=== PATIENT | male | born 1970 | race Caucasian/White ===

== ENCOUNTER 2022-03-16 10:32 | Inpatient (IN) ==
[2022-03-16] MEDS ORDERED: *HR* Dextrose 50 % in Water (Syg) 50 ML SYRINGE IVP PRN (15:54)
[2022-03-16] MEDS ORDERED: Dextrose Gel 15 GM/37.5 ML TUBE PO PRN ×2 (15:54)
[2022-03-16] MEDS ORDERED: D5% in Water 1,000 ML IVC PRN (15:54)
[2022-03-16] MEDS ORDERED: VANCOMYCIN IV SCH (16:00)
[2022-03-16] MEDS ORDERED: [UNRECOGNIZED DRUG - OTHER] IV SCH (16:00)
[2022-03-16] MEDS ORDERED: SOD CHLORIDE IV SCH (16:00)
[2022-03-16] MEDS: Insulin LISPRO 300 UNITS/3 ML VIAL SUBQ SCH ×2 (16:53→20:51)
[2022-03-16] MEDS: Cefepime HCl 2,000 MG in 0.9 % Sodium Chloride 10 ML IVP SCH (18:19)
[2022-03-16] MEDS: *HR* Buprenorphine HCl 8 MG TAB.SUBL SL SCH (20:49)
[2022-03-16] MEDS ORDERED: NON-FORMULARY MEDICATION 1 EACH EACH (Cefepime Hcl/Dextrose, Iso-Osm [Cefepime 2 Gm Inject IV SCH (21:00)
[2022-03-16] MEDS: *HR* Heparin 5,000 UNIT/ML VIAL SQ SCH (21:02)
[2022-03-17] MEDS: Cefepime HCl 2,000 MG in 0.9 % Sodium Chloride 10 ML IVP SCH ×2 (05:57→18:34)
[2022-03-17] MEDS: *HR* Heparin 5,000 UNIT/ML VIAL SQ SCH ×3 (05:57→20:03)
[2022-03-17 07:33] LABS: Basophils % 0.4 %; Eosinophils # 0.2 K/mcL (0.0-0.6); Eosinophils % 1.7 %; Hematocrit 33.8 % (37.5-50.1); Hemoglobin 10.3 g/dL (12.9-16.9); Immature Granulocytes % 0.3 % (0-4); Lymphocytes # 2.6 K/mcL (0.6-4.6); Lymphocytes % 27.1 %; Mean Corpuscular HGB Conc 30.5 g/dL (31.6-35.5); Mean Corpuscular Hemoglobin 25.5 pg (28.0-33.3); Mean Corpuscular Volume 83.7 fL (83.0-100.0); Mean Platelet Volume 10.9 fL (9.4-12.4); Monocytes # 0.9 K/mcL (0.0-1.3); Neutrophils # 5.9 K/mcL (1.6-8.9); Platelet Count 284 K/mcL (140-400); Red Blood Count 4.04 M/mcL (4.19-5.50); Red Cell Distribution Width 15.1 % (11.5-14.5); Segmented Neutrophils % 61.5 %; White Blood Count 9.6 K/mcL (4.3-11.1)
[2022-03-17 07:45] LABS: BUN/Creatinine Ratio 27 (6-26); Blood Urea Nitrogen 27 mg/dL (6-20); Calcium 7.8 mg/dL (8.6-10.3); Carbon Dioxide 29 mEq/L (23-29); Chloride 104 mEq/L (98-107); Glucose 240 mg/dL (70-105); Osmolality,Calculated 299 (280-300); Potassium 4.2 mEq/L (3.5-5.1); Sodium 138 mEq/L (136-145)
[2022-03-17] MEDS: Aspirin 81 MG TAB.CHEW PO SCH (08:36)
[2022-03-17] MEDS: lisinopriL 5 MG TABLET PO SCH (08:36)
[2022-03-17] MEDS: *HR* Buprenorphine HCl 8 MG TAB.SUBL SL SCH ×3 (08:36→19:52)
[2022-03-17] MEDS: Insulin LISPRO 300 UNITS/3 ML VIAL SUBQ SCH ×4 (08:37→19:54)
[2022-03-18] MEDS: Cefepime HCl 2,000 MG in 0.9 % Sodium Chloride 10 ML IVP SCH ×3 (05:02→17:36)
[2022-03-18] MEDS: *HR* Heparin 5,000 UNIT/ML VIAL SQ SCH ×3 (05:03→20:39)
[2022-03-18] MEDS: lisinopriL 5 MG TABLET PO SCH (08:58)
[2022-03-18] MEDS: *HR* Buprenorphine HCl 8 MG TAB.SUBL SL SCH ×3 (08:58→20:40)
[2022-03-18] MEDS: Aspirin 81 MG TAB.CHEW PO SCH (08:59)
[2022-03-18] MEDS: Insulin LISPRO 300 UNITS/3 ML VIAL SUBQ SCH ×4 (08:59→20:40)
[2022-03-18] MEDS ORDERED: Artificial Tears SOLN 15 ML BOTTLE BOTH EYES PRN (18:06)
[2022-03-19] MEDS: *HR* Heparin 5,000 UNIT/ML VIAL SQ SCH ×3 (06:18→22:10)
[2022-03-19] MEDS: Cefepime HCl 2,000 MG in 0.9 % Sodium Chloride 10 ML IVP SCH ×2 (06:18→17:15)
[2022-03-19] MEDS: lisinopriL 5 MG TABLET PO SCH (08:05)
[2022-03-19] MEDS: *HR* Buprenorphine HCl 8 MG TAB.SUBL SL SCH ×3 (08:05→22:10)
[2022-03-19] MEDS: Aspirin 81 MG TAB.CHEW PO SCH (08:05)
[2022-03-19] MEDS: Insulin LISPRO 300 UNITS/3 ML VIAL SUBQ SCH ×4 (08:06→22:23)
[2022-03-19] MEDS: Insulin DETEMIR 100 UNIT/ML X5UNITS SUBQ SCH (22:22)
[2022-03-20] MEDS: *HR* Heparin 5,000 UNIT/ML VIAL SQ SCH ×3 (05:46→22:25)
[2022-03-20] MEDS: Cefepime HCl 2,000 MG in 0.9 % Sodium Chloride 10 ML IVP SCH ×2 (05:46→17:04)
[2022-03-20] MEDS: lisinopriL 5 MG TABLET PO SCH (09:40)
[2022-03-20] MEDS: Aspirin 81 MG TAB.CHEW PO SCH (09:40)
[2022-03-20] MEDS: *HR* Buprenorphine HCl 8 MG TAB.SUBL SL SCH ×3 (09:41→22:25)
[2022-03-20] MEDS: Insulin DETEMIR 100 UNIT/ML X5UNITS SUBQ SCH ×2 (09:41→22:26)
[2022-03-20] MEDS: Insulin LISPRO 300 UNITS/3 ML VIAL SUBQ SCH ×4 (09:42→22:27)
[2022-03-20] MEDS: Melatonin 3 MG TABLET PO PRN (22:28)
[2022-03-21] MEDS: *HR* Heparin 5,000 UNIT/ML VIAL SQ SCH ×3 (05:58→20:30)
[2022-03-21] MEDS: lisinopriL 5 MG TABLET PO SCH (09:03)
[2022-03-21] MEDS: Aspirin 81 MG TAB.CHEW PO SCH (09:03)
[2022-03-21] MEDS: *HR* Buprenorphine HCl 8 MG TAB.SUBL SL SCH ×3 (09:03→20:28)
[2022-03-21] MEDS: Insulin DETEMIR 100 UNIT/ML X5UNITS SUBQ SCH ×2 (09:04→20:32)
[2022-03-21] MEDS: Cefepime HCl 2,000 MG in 0.9 % Sodium Chloride 10 ML IVP SCH ×2 (09:05→16:55)
[2022-03-21] MEDS: Insulin LISPRO 300 UNITS/3 ML VIAL SUBQ SCH ×4 (09:06→20:33)
[2022-03-21 09:39] LABS: Basophils % 0.3 %; Eosinophils # 0.2 K/mcL (0.0-0.6); Eosinophils % 1.8 %; Hematocrit 35.6 % (37.5-50.1); Hemoglobin 10.9 g/dL (12.9-16.9); Immature Granulocytes % 0.4 % (0-4); Lymphocytes # 2.6 K/mcL (0.6-4.6); Lymphocytes % 26.6 %; Mean Corpuscular HGB Conc 30.6 g/dL (31.6-35.5); Mean Corpuscular Hemoglobin 25.6 pg (28.0-33.3); Mean Corpuscular Volume 83.6 fL (83.0-100.0); Mean Platelet Volume 11.5 fL (9.4-12.4); Monocytes # 0.9 K/mcL (0.0-1.3); Platelet Count 301 K/mcL (140-400); Red Blood Count 4.26 M/mcL (4.19-5.50); Red Cell Distribution Width 15.8 % (11.5-14.5); Segmented Neutrophils % 61.9 %; White Blood Count 9.6 K/mcL (4.3-11.1)
[2022-03-21 09:47] LABS: Calcium 7.9 mg/dL (8.6-10.3); Potassium 4.3 mEq/L (3.5-5.1)
[2022-03-22] MEDS: *HR* Heparin 5,000 UNIT/ML VIAL SQ SCH ×3 (05:41→22:40)
[2022-03-22] MEDS: Cefepime HCl 2,000 MG in 0.9 % Sodium Chloride 10 ML IVP SCH ×2 (05:42→18:37)
[2022-03-22] MEDS: Insulin LISPRO 300 UNITS/3 ML VIAL SUBQ SCH ×4 (08:51→20:55)
[2022-03-22] MEDS: Insulin DETEMIR 100 UNIT/ML X5UNITS SUBQ SCH ×2 (08:52→20:55)
[2022-03-22] MEDS: *HR* Buprenorphine HCl 8 MG TAB.SUBL SL SCH ×3 (08:54→20:55)
[2022-03-22] MEDS: lisinopriL 5 MG TABLET PO SCH (08:54)
[2022-03-22] MEDS: Aspirin 81 MG TAB.CHEW PO SCH (08:54)
[2022-03-22] MEDS: Melatonin 3 MG TABLET PO PRN (21:02)
[2022-03-23] MEDS: Cefepime HCl 2,000 MG in 0.9 % Sodium Chloride 10 ML IVP SCH ×2 (06:17→21:15)
[2022-03-23] MEDS: *HR* Heparin 5,000 UNIT/ML VIAL SQ SCH ×3 (06:18→23:28)
[2022-03-23] MEDS: Insulin LISPRO 300 UNITS/3 ML VIAL SUBQ SCH ×4 (07:43→22:31)
[2022-03-23] MEDS: lisinopriL 5 MG TABLET PO SCH (10:59)
[2022-03-23] MEDS: *HR* Buprenorphine HCl 8 MG TAB.SUBL SL SCH ×3 (10:59→21:15)
[2022-03-23] MEDS: Aspirin 81 MG TAB.CHEW PO SCH (10:59)
[2022-03-23] MEDS: Insulin DETEMIR 100 UNIT/ML X5UNITS SUBQ SCH ×2 (11:02→22:31)
[2022-03-23 12:40] LABS: Basophils % 0.4 %; Eosinophils # 0.1 K/mcL (0.0-0.6); Eosinophils % 1.4 %; Hematocrit 35.9 % (37.5-50.1); Hemoglobin 11.3 g/dL (12.9-16.9); Immature Granulocytes % 0.4 % (0-4); Lymphocytes # 2.2 K/mcL (0.6-4.6); Lymphocytes % 22.4 %; Mean Corpuscular HGB Conc 31.5 g/dL (31.6-35.5); Mean Corpuscular Hemoglobin 26.2 pg (28.0-33.3); Mean Corpuscular Volume 83.1 fL (83.0-100.0); Mean Platelet Volume 12.4 fL (9.4-12.4); Monocytes # 0.9 K/mcL (0.0-1.3); Monocytes % 9.4 %; Neutrophils # 6.5 K/mcL (1.6-8.9); Platelet Count 293 K/mcL (140-400); Red Blood Count 4.32 M/mcL (4.19-5.50); White Blood Count 9.9 K/mcL (4.3-11.1)
[2022-03-23 12:59] LABS: Alanine Aminotransferase 7 Units/L (7-52); Albumin 2.6 g/dL (3.5-5.7); Albumin/Globulin Ratio 0.6 (1.1-2.2); Alkaline Phosphatase 55 Units/L (34-104); Aspartate Amino Transferase 11 Units/L (13-39); BUN/Creatinine Ratio 24 (6-26); Bilirubin,Total 0.2 mg/dL (0.3-1.0); Blood Urea Nitrogen 23 mg/dL (6-20); Calcium 8.1 mg/dL (8.6-10.3); Carbon Dioxide 33 mEq/L (23-29); Chloride 97 mEq/L (98-107); Globulin 4.1 g/dL (2.4-3.5); Glucose 338 mg/dL (70-105); Osmolality,Calculated 299 (280-300); Potassium 4.1 mEq/L (3.5-5.1); Sodium 136 mEq/L (136-145); Total Protein 6.7 g/dL (6.4-8.9)
[2022-03-24 03:51] LABS: Hepatitis B Surface Antibody < 3.10 mIU/mL
[2022-03-24 04:01] LABS: Hepatitis B Surface Antigen Nonreactive (Nonreactive)
[2022-03-24 04:33] LABS: HIV-1&2 Antibody & p24 Ag Nonreactive (Nonreactive)
[2022-03-24] MEDS: *HR* Heparin 5,000 UNIT/ML VIAL SQ SCH ×3 (06:42→21:45)
[2022-03-24] MEDS: *HR* Buprenorphine HCl 8 MG TAB.SUBL SL SCH ×3 (08:18→21:44)
[2022-03-24] MEDS: lisinopriL 5 MG TABLET PO SCH (08:18)
[2022-03-24] MEDS: Insulin LISPRO 300 UNITS/3 ML VIAL SUBQ SCH ×4 (08:19→21:49)
[2022-03-24] MEDS: Aspirin 81 MG TAB.CHEW PO SCH (08:19)
[2022-03-24] MEDS: Cefepime HCl 2,000 MG in 0.9 % Sodium Chloride 10 ML IVP SCH ×2 (08:55→17:14)
[2022-03-24] MEDS: Insulin DETEMIR 100 UNIT/ML X5UNITS SUBQ SCH ×2 (09:13→21:49)
[2022-03-25] MEDS: *HR* Heparin 5,000 UNIT/ML VIAL SQ SCH ×3 (06:03→21:18)
[2022-03-25] MEDS: Cefepime HCl 2,000 MG in 0.9 % Sodium Chloride 10 ML IVP SCH ×2 (06:04→17:35)
[2022-03-25] MEDS: *HR* Buprenorphine HCl 8 MG TAB.SUBL SL SCH ×3 (08:15→21:18)
[2022-03-25] MEDS: Aspirin 81 MG TAB.CHEW PO SCH (08:15)
[2022-03-25] MEDS: lisinopriL 5 MG TABLET PO SCH (08:16)
[2022-03-25] MEDS: Insulin LISPRO 300 UNITS/3 ML VIAL SUBQ SCH ×4 (08:16→21:22)
[2022-03-25] MEDS: Insulin DETEMIR 100 UNIT/ML X5UNITS SUBQ SCH ×2 (09:58→21:23)
[2022-03-25 11:25] LABS: Quantiferon Mitogen minus NIL 4.57 IU/mL; Quantiferon TB2 minus NIL 0.02 IU/mL (< 0.35)
[2022-03-26] MEDS: *HR* Heparin 5,000 UNIT/ML VIAL SQ SCH ×3 (06:30→22:13)
[2022-03-26] MEDS: Cefepime HCl 2,000 MG in 0.9 % Sodium Chloride 10 ML IVP SCH ×2 (06:30→18:34)
[2022-03-26] MEDS: *HR* Buprenorphine HCl 8 MG TAB.SUBL SL SCH ×3 (08:18→20:40)
[2022-03-26] MEDS: Aspirin 81 MG TAB.CHEW PO SCH (08:18)
[2022-03-26] MEDS: lisinopriL 5 MG TABLET PO SCH (08:18)
[2022-03-26] MEDS: Insulin LISPRO 300 UNITS/3 ML VIAL SUBQ SCH ×4 (08:19→20:41)
[2022-03-26] MEDS: Insulin DETEMIR 100 UNIT/ML X5UNITS SUBQ SCH ×2 (10:14→20:41)
[2022-03-26] MEDS: Melatonin 3 MG TABLET PO PRN (22:51)
[2022-03-27] MEDS: *HR* Heparin 5,000 UNIT/ML VIAL SQ SCH ×3 (06:26→20:39)
[2022-03-27] MEDS: Cefepime HCl 2,000 MG in 0.9 % Sodium Chloride 10 ML IVP SCH ×2 (06:27→20:39)
[2022-03-27] MEDS: Insulin LISPRO 300 UNITS/3 ML VIAL SUBQ SCH ×4 (08:54→20:40)
[2022-03-27] MEDS: Insulin DETEMIR 100 UNIT/ML X5UNITS SUBQ SCH ×2 (08:55→20:39)
[2022-03-27] MEDS: lisinopriL 5 MG TABLET PO SCH (08:56)
[2022-03-27] MEDS: *HR* Buprenorphine HCl 8 MG TAB.SUBL SL SCH ×3 (08:56→20:40)
[2022-03-27] MEDS: Aspirin 81 MG TAB.CHEW PO SCH (08:56)
[2022-03-27] MEDS: Melatonin 3 MG TABLET PO PRN (20:49)
[2022-03-28] MEDS: *HR* Heparin 5,000 UNIT/ML VIAL SQ SCH ×3 (05:34→22:04)
[2022-03-28] MEDS: Cefepime HCl 2,000 MG in 0.9 % Sodium Chloride 10 ML IVP SCH ×2 (05:34→20:45)
[2022-03-28] MEDS: *HR* Buprenorphine HCl 8 MG TAB.SUBL SL SCH ×3 (08:12→20:42)
[2022-03-28] MEDS: Insulin DETEMIR 100 UNIT/ML X5UNITS SUBQ SCH (08:12)
[2022-03-28] MEDS: Aspirin 81 MG TAB.CHEW PO SCH (08:12)
[2022-03-28] MEDS: lisinopriL 5 MG TABLET PO SCH (08:12)
[2022-03-28] MEDS: Insulin LISPRO 300 UNITS/3 ML VIAL SUBQ SCH ×4 (08:16→20:43)
[2022-03-28] MEDS: Melatonin 3 MG TABLET PO PRN (20:42)
[2022-03-28] MEDS ORDERED: Insulin DETEMIR 100 UNIT/ML per UNIT SUBQ ONE (21:00)
[2022-03-29] MEDS: *HR* Heparin 5,000 UNIT/ML VIAL SQ SCH ×3 (06:35→23:13)
[2022-03-29] MEDS: Cefepime HCl 2,000 MG in 0.9 % Sodium Chloride 10 ML IVP SCH ×2 (06:35→17:41)
[2022-03-29 07:33] LABS: Basophils % 0.4 %; Eosinophils # 0.3 K/mcL (0.0-0.6); Eosinophils % 2.3 %; Hematocrit 42.2 % (37.5-50.1); Hemoglobin 12.7 g/dL (12.9-16.9); Immature Granulocytes % 0.7 % (0-4); Lymphocytes # 2.5 K/mcL (0.6-4.6); Mean Corpuscular HGB Conc 30.1 g/dL (31.6-35.5); Mean Corpuscular Hemoglobin 26.3 pg (28.0-33.3); Mean Corpuscular Volume 87.4 fL (83.0-100.0); Mean Platelet Volume 12.3 fL (9.4-12.4); Monocytes # 1.1 K/mcL (0.0-1.3); Monocytes % 9.8 %; Neutrophils # 6.8 K/mcL (1.6-8.9); Platelet Count 265 K/mcL (140-400); Red Blood Count 4.83 M/mcL (4.19-5.50); Red Cell Distribution Width 17.7 % (11.5-14.5); Segmented Neutrophils % 63.8 %; White Blood Count 10.7 K/mcL (4.3-11.1)
[2022-03-29 07:41] LABS: BUN/Creatinine Ratio 29 (6-26); Blood Urea Nitrogen 26 mg/dL (6-20); Calcium 8.4 mg/dL (8.6-10.3); Carbon Dioxide 33 mEq/L (23-29); Chloride 101 mEq/L (98-107); Glucose 211 mg/dL (70-105); Magnesium 1.7 mg/dL (1.6-2.6); Osmolality,Calculated 301 (280-300); Potassium 4.3 mEq/L (3.5-5.1); Sodium 140 mEq/L (136-145)
[2022-03-29] MEDS ORDERED: Ipratropium/Albuterol Neb 3 ML IH PRN (08:45)
[2022-03-29] MEDS ORDERED: Furosemide 40 MG/4 ML VIAL IVP ONE (08:45)
[2022-03-29] MEDS: *HR* Buprenorphine HCl 8 MG TAB.SUBL SL SCH ×3 (09:23→23:13)
[2022-03-29] MEDS: Aspirin 81 MG TAB.CHEW PO SCH (09:23)
[2022-03-29] MEDS: lisinopriL 5 MG TABLET PO SCH (09:23)
[2022-03-29] MEDS ORDERED: Iopamidol - 370 500 ML MLS IVP ONE (09:24)
[2022-03-29] MEDS: Insulin LISPRO 300 UNITS/3 ML VIAL SUBQ SCH ×4 (09:24→23:14)
[2022-03-29] MEDS: Insulin DETEMIR 100 UNIT/ML X5UNITS SUBQ SCH ×2 (09:43→23:13)
[2022-03-29] MEDS ORDERED: lisinopriL 20 MG TABLET PO SCH (09:45)
[2022-03-29] MEDS ORDERED: lisinopriL 5 MG TABLET PO ONE (10:27)
[2022-03-29 10:58] LABS: Adenovirus Not Detected (Not Detect); Coronavirus 229E Not Detected (Not Detect); Coronavirus HKU1 Not Detected (Not Detect); Coronavirus NL63 Not Detected (Not Detect); Coronavirus OC43 Not Detected (Not Detect)
[2022-03-29 11:05] LABS: Bordetella Pertussis Not Detected (Not Detect); Chlamydophila pneumoniae Not Detected (Not Detect); Human Metapneumovirus Not Detected (Not Detect); Human Rhinovirus/Enterovirus Not Detected (Not Detect); Influenza A Subtype 2009 H1 Not Detected (Not Detect); Influenza B Not Detected (Not Detect); Mycoplasma pneumoniae Not Detected (Not Detect); Parainfluenza Virus 1 Not Detected (Not Detect); Parainfluenza Virus 2 Not Detected (Not Detect); Parainfluenza Virus 3 Not Detected (Not Detect); Parainfluenza Virus 4 Not Detected (Not Detect); Respiratory Syncytial Virus Not Detected (Not Detect); SARS-CoV-2 DETECTED (Not Detect)
[2022-03-29] MEDS ORDERED: Ondansetron ODT 4 MG TAB.RAPDIS SL PRN (11:09)
[2022-03-29] MEDS ORDERED: Acetylcysteine 10% 2 ML INHSOL IH SCH (11:15)
[2022-03-29] MEDS ORDERED: Ipratropium/Albuterol Neb 3 ML IH SCH (11:15)
[2022-03-29] MEDS: Nicotine 21 MG PATCH.TD24 TD SCH (12:28)
[2022-03-29] MEDS: Benzonatate 100 MG CAPSULE PO PRN (23:12)
[2022-03-29] MEDS: Melatonin 3 MG TABLET PO PRN (23:12)
[2022-03-29] MEDS: Acetaminophen 325 MG TABLET PO PRN (23:12)
[2022-03-30] MEDS: *HR* Heparin 5,000 UNIT/ML VIAL SQ SCH ×3 (06:43→21:28)
[2022-03-30] MEDS ORDERED: GuaiFENesin/Dextromethorphan TABLET PO PRN (08:01)
[2022-03-30] MEDS: Cefepime HCl 2,000 MG in 0.9 % Sodium Chloride 10 ML IVP SCH ×2 (08:14→18:47)
[2022-03-30] MEDS: Insulin LISPRO 300 UNITS/3 ML VIAL SUBQ SCH ×4 (08:25→21:33)
[2022-03-30] MEDS: Aspirin 81 MG TAB.CHEW PO SCH (09:58)
[2022-03-30] MEDS: *HR* Buprenorphine HCl 8 MG TAB.SUBL SL SCH ×3 (09:58→21:26)
[2022-03-30] MEDS: Furosemide 20 MG TABLET PO SCH (09:58)
[2022-03-30] MEDS: lisinopriL 20 MG TABLET PO SCH (09:59)
[2022-03-30] MEDS: Nicotine 21 MG PATCH.TD24 TD SCH (10:00)
[2022-03-30] MEDS: Insulin DETEMIR 100 UNIT/ML X5UNITS SUBQ SCH ×2 (10:02→21:28)
[2022-03-30] MEDS: Melatonin 3 MG TABLET PO PRN (21:26)
[2022-03-30] MEDS: Acetaminophen 325 MG TABLET PO PRN (21:26)
[2022-03-31] MEDS: *HR* Heparin 5,000 UNIT/ML VIAL SQ SCH ×3 (05:57→21:28)
[2022-03-31 06:30] LABS: Basophils # 0.1 K/mcL (0.0-0.2); Basophils % 0.5 %; Eosinophils # 0.1 K/mcL (0.0-0.6); Eosinophils % 0.5 %; Hematocrit 36.1 % (37.5-50.1); Hemoglobin 11.1 g/dL (12.9-16.9); Immature Granulocytes % 0.3 % (0-4); Lymphocytes # 3.3 K/mcL (0.6-4.6); Mean Corpuscular HGB Conc 30.7 g/dL (31.6-35.5); Mean Corpuscular Hemoglobin 26.3 pg (28.0-33.3); Mean Corpuscular Volume 85.5 fL (83.0-100.0); Mean Platelet Volume 12.4 fL (9.4-12.4); Monocytes # 1.2 K/mcL (0.0-1.3); Monocytes % 10.6 %; Neutrophils # 6.4 K/mcL (1.6-8.9); Platelet Count 226 K/mcL (140-400); Red Blood Count 4.22 M/mcL (4.19-5.50); Red Cell Distribution Width 17.6 % (11.5-14.5); Segmented Neutrophils % 58.1 %; White Blood Count 10.9 K/mcL (4.3-11.1)
[2022-03-31 06:44] LABS: Calcium 7.8 mg/dL (8.6-10.3); Potassium 4.5 mEq/L (3.5-5.1)
[2022-03-31] MEDS: Cefepime HCl 2,000 MG in 0.9 % Sodium Chloride 10 ML IVP SCH ×2 (07:15→18:37)
[2022-03-31] MEDS: Insulin LISPRO 300 UNITS/3 ML VIAL SUBQ SCH ×4 (08:19→21:30)
[2022-03-31] MEDS: *HR* Buprenorphine HCl 8 MG TAB.SUBL SL SCH ×3 (09:35→21:28)
[2022-03-31] MEDS: Furosemide 20 MG TABLET PO SCH (09:35)
[2022-03-31] MEDS: Aspirin 81 MG TAB.CHEW PO SCH (09:36)
[2022-03-31] MEDS: lisinopriL 20 MG TABLET PO SCH (09:36)
[2022-03-31] MEDS: Insulin DETEMIR 100 UNIT/ML X5UNITS SUBQ SCH ×2 (09:37→21:30)
[2022-03-31] MEDS: Nicotine 21 MG PATCH.TD24 TD SCH (10:30)
[2022-03-31] MEDS: Melatonin 3 MG TABLET PO PRN (21:28)
[2022-03-31] MEDS: Acetaminophen 325 MG TABLET PO PRN (21:41)
[2022-04-01] MEDS: Insulin LISPRO 300 UNITS/3 ML VIAL SUBQ SCH ×7 (00:28→21:32)
[2022-04-01] MEDS: *HR* Heparin 5,000 UNIT/ML VIAL SQ SCH ×3 (05:25→21:28)
[2022-04-01] MEDS: Cefepime HCl 2,000 MG in 0.9 % Sodium Chloride 10 ML IVP SCH ×2 (05:39→18:03)
[2022-04-01] MEDS: lisinopriL 20 MG TABLET PO SCH (09:28)
[2022-04-01] MEDS: Aspirin 81 MG TAB.CHEW PO SCH (09:29)
[2022-04-01] MEDS: *HR* Buprenorphine HCl 8 MG TAB.SUBL SL SCH ×3 (09:29→21:27)
[2022-04-01] MEDS: dexAMETHasone 4 MG TABLET PO SCH (09:29)
[2022-04-01] MEDS: Nicotine 21 MG PATCH.TD24 TD SCH (09:31)
[2022-04-01] MEDS: Insulin DETEMIR 100 UNIT/ML X5UNITS SUBQ SCH ×2 (09:32→21:31)
[2022-04-01] MEDS: Melatonin 3 MG TABLET PO PRN (21:24)
[2022-04-02] MEDS: Insulin LISPRO 300 UNITS/3 ML VIAL SUBQ SCH ×7 (01:03→20:36)
[2022-04-02] MEDS: *HR* Heparin 5,000 UNIT/ML VIAL SQ SCH ×3 (05:39→20:23)
[2022-04-02] MEDS: Cefepime HCl 2,000 MG in 0.9 % Sodium Chloride 10 ML IVP SCH ×2 (05:40→17:47)
[2022-04-02] MEDS: dexAMETHasone 4 MG TABLET PO SCH (08:24)
[2022-04-02] MEDS: Aspirin 81 MG TAB.CHEW PO SCH (08:24)
[2022-04-02] MEDS: *HR* Buprenorphine HCl 8 MG TAB.SUBL SL SCH ×3 (08:24→20:20)
[2022-04-02] MEDS: lisinopriL 20 MG TABLET PO SCH (08:24)
[2022-04-02] MEDS: Nicotine 21 MG PATCH.TD24 TD SCH (08:25)
[2022-04-02] MEDS: Insulin DETEMIR 100 UNIT/ML X5UNITS SUBQ SCH ×2 (09:45→20:34)
[2022-04-02] MEDS ORDERED: Insulin LISPRO 300 UNITS/3 ML VIAL SUBQ STA (18:12)
[2022-04-02] MEDS: Melatonin 3 MG TABLET PO PRN (20:20)
[2022-04-02] MEDS: Benzonatate 100 MG CAPSULE PO PRN (20:20)
[2022-04-03] MEDS: Insulin LISPRO 300 UNITS/3 ML VIAL SUBQ SCH ×7 (01:04→20:59)
[2022-04-03] MEDS: *HR* Heparin 5,000 UNIT/ML VIAL SQ SCH ×3 (04:38→21:00)
[2022-04-03] MEDS: Cefepime HCl 2,000 MG in 0.9 % Sodium Chloride 10 ML IVP SCH ×2 (06:05→16:21)
[2022-04-03] MEDS: Aspirin 81 MG TAB.CHEW PO SCH (08:49)
[2022-04-03] MEDS: *HR* Buprenorphine HCl 8 MG TAB.SUBL SL SCH ×3 (08:50→20:59)
[2022-04-03] MEDS: lisinopriL 20 MG TABLET PO SCH (08:50)
[2022-04-03] MEDS: Nicotine 21 MG PATCH.TD24 TD SCH (08:52)
[2022-04-03] MEDS: Insulin DETEMIR 100 UNIT/ML X5UNITS SUBQ SCH ×2 (10:04→20:59)
[2022-04-03] MEDS: Melatonin 3 MG TABLET PO PRN (21:09)
[2022-04-04] MEDS: Insulin LISPRO 300 UNITS/3 ML VIAL SUBQ SCH ×7 (02:01→20:39)
[2022-04-04] MEDS: *HR* Heparin 5,000 UNIT/ML VIAL SQ SCH ×3 (05:53→20:38)
[2022-04-04] MEDS: Cefepime HCl 2,000 MG in 0.9 % Sodium Chloride 10 ML IVP SCH ×2 (05:53→20:37)
[2022-04-04 07:09] LABS: Basophils # 0.1 K/mcL (0.0-0.2); Basophils % 0.5 %; Eosinophils # 0.3 K/mcL (0.0-0.6); Eosinophils % 2.4 %; Hematocrit 43.1 % (37.5-50.1); Lymphocytes # 2.8 K/mcL (0.6-4.6); Lymphocytes % 25.2 %; Mean Corpuscular HGB Conc 30.2 g/dL (31.6-35.5); Mean Corpuscular Hemoglobin 26.5 pg (28.0-33.3); Mean Platelet Volume 12.2 fL (9.4-12.4); Monocytes # 1.1 K/mcL (0.0-1.3); Monocytes % 9.7 %; Neutrophils # 6.8 K/mcL (1.6-8.9); Platelet Count 253 K/mcL (140-400); Segmented Neutrophils % 61.2 %
[2022-04-04 08:09] LABS: BUN/Creatinine Ratio 32 (6-26); Blood Urea Nitrogen 40 mg/dL (6-20); Carbon Dioxide 33 mEq/L (23-29); Chloride 102 mEq/L (98-107); Glucose 204 mg/dL (70-105); Osmolality,Calculated 306 (280-300); Sodium 140 mEq/L (136-145); Vancomycin,Trough 35 mcg/mL (5-10)
[2022-04-04] MEDS: Nicotine 21 MG PATCH.TD24 TD SCH (08:59)
[2022-04-04] MEDS: Aspirin 81 MG TAB.CHEW PO SCH (09:45)
[2022-04-04] MEDS: Insulin DETEMIR 100 UNIT/ML X5UNITS SUBQ SCH ×2 (09:45→20:38)
[2022-04-04] MEDS: *HR* Buprenorphine HCl 8 MG TAB.SUBL SL SCH ×3 (09:45→20:39)
[2022-04-04] MEDS: lisinopriL 20 MG TABLET PO SCH (09:46)
[2022-04-04 11:34] LABS: C-Reactive Protein < 5 mg/L (Less than 10)
[2022-04-04] MEDS: Melatonin 3 MG TABLET PO PRN (20:38)
[2022-04-05] MEDS: Insulin LISPRO 300 UNITS/3 ML VIAL SUBQ SCH ×8 (00:16→23:35)
[2022-04-05] MEDS: Cefepime HCl 2,000 MG in 0.9 % Sodium Chloride 10 ML IVP SCH ×2 (05:41→18:33)
[2022-04-05] MEDS: *HR* Heparin 5,000 UNIT/ML VIAL SQ SCH ×3 (05:41→21:20)
[2022-04-05] MEDS: *HR* Buprenorphine HCl 8 MG TAB.SUBL SL SCH ×3 (08:41→21:19)
[2022-04-05] MEDS: Aspirin 81 MG TAB.CHEW PO SCH (08:42)
[2022-04-05] MEDS: lisinopriL 20 MG TABLET PO SCH (08:42)
[2022-04-05] MEDS: Nicotine 21 MG PATCH.TD24 TD SCH (08:52)
[2022-04-05] MEDS: Insulin DETEMIR 100 UNIT/ML X5UNITS SUBQ SCH ×2 (12:00→21:24)
[2022-04-05] MEDS: Melatonin 3 MG TABLET PO PRN (21:18)
[2022-04-05] MEDS: hydrALAZINE 25 MG TABLET PO PRN (21:19)
[2022-04-05] MEDS: Benzonatate 100 MG CAPSULE PO PRN (21:20)
[2022-04-06] MEDS: Insulin LISPRO 300 UNITS/3 ML VIAL SUBQ SCH ×6 (04:51→21:52)
[2022-04-06] MEDS: Cefepime HCl 2,000 MG in 0.9 % Sodium Chloride 10 ML IVP SCH ×2 (05:54→18:45)
[2022-04-06] MEDS: *HR* Heparin 5,000 UNIT/ML VIAL SQ SCH ×3 (05:54→21:51)
[2022-04-06] MEDS: Aspirin 81 MG TAB.CHEW PO SCH (08:38)
[2022-04-06] MEDS: lisinopriL 20 MG TABLET PO SCH (08:38)
[2022-04-06] MEDS: *HR* Buprenorphine HCl 8 MG TAB.SUBL SL SCH ×3 (08:38→21:51)
[2022-04-06] MEDS: Nicotine 21 MG PATCH.TD24 TD SCH (08:39)
[2022-04-06] MEDS: Insulin DETEMIR 100 UNIT/ML X5UNITS SUBQ SCH ×2 (10:19→21:51)
[2022-04-06] MEDS: Melatonin 3 MG TABLET PO PRN (21:51)
[2022-04-06] MEDS: hydrALAZINE 25 MG TABLET PO PRN (21:51)
[2022-04-07] MEDS: Insulin LISPRO 300 UNITS/3 ML VIAL SUBQ SCH ×6 (01:10→21:24)
[2022-04-07] MEDS: *HR* Heparin 5,000 UNIT/ML VIAL SQ SCH ×3 (06:00→21:23)
[2022-04-07] MEDS: Cefepime HCl 2,000 MG in 0.9 % Sodium Chloride 10 ML IVP SCH ×2 (06:00→16:58)
[2022-04-07] MEDS: lisinopriL 20 MG TABLET PO SCH (08:13)
[2022-04-07] MEDS: *HR* Buprenorphine HCl 8 MG TAB.SUBL SL SCH ×3 (08:13→21:21)
[2022-04-07] MEDS: Aspirin 81 MG TAB.CHEW PO SCH (08:13)
[2022-04-07] MEDS: Nicotine 21 MG PATCH.TD24 TD SCH (08:14)
[2022-04-07] MEDS: Insulin DETEMIR 100 UNIT/ML X5UNITS SUBQ SCH ×2 (09:16→22:10)
[2022-04-08] MEDS: *HR* Heparin 5,000 UNIT/ML VIAL SQ SCH ×3 (06:25→21:41)
[2022-04-08] MEDS: Cefepime HCl 2,000 MG in 0.9 % Sodium Chloride 10 ML IVP SCH ×2 (06:26→17:01)
[2022-04-08] MEDS: Nicotine 21 MG PATCH.TD24 TD SCH (08:48)
[2022-04-08] MEDS: lisinopriL 20 MG TABLET PO SCH (08:48)
[2022-04-08] MEDS: *HR* Buprenorphine HCl 8 MG TAB.SUBL SL SCH ×3 (08:48→21:41)
[2022-04-08] MEDS: Aspirin 81 MG TAB.CHEW PO SCH (08:48)
[2022-04-08] MEDS: Insulin DETEMIR 100 UNIT/ML X5UNITS SUBQ SCH ×2 (08:48→21:42)
[2022-04-08] MEDS: Insulin LISPRO 300 UNITS/3 ML VIAL SUBQ SCH ×4 (08:49→21:00)
[2022-04-08] MEDS: Melatonin 3 MG TABLET PO PRN (21:46)
[2022-04-09] MEDS: *HR* Heparin 5,000 UNIT/ML VIAL SQ SCH ×3 (06:24→20:32)
[2022-04-09] MEDS: Cefepime HCl 2,000 MG in 0.9 % Sodium Chloride 10 ML IVP SCH ×2 (06:30→18:08)
[2022-04-09] MEDS: *HR* Buprenorphine HCl 8 MG TAB.SUBL SL SCH ×3 (08:22→20:31)
[2022-04-09] MEDS: Aspirin 81 MG TAB.CHEW PO SCH (08:22)
[2022-04-09] MEDS: Insulin LISPRO 300 UNITS/3 ML VIAL SUBQ SCH ×4 (08:22→20:32)
[2022-04-09] MEDS: lisinopriL 20 MG TABLET PO SCH (08:22)
[2022-04-09] MEDS: Nicotine 21 MG PATCH.TD24 TD SCH (08:26)
[2022-04-09] MEDS: Insulin DETEMIR 100 UNIT/ML X5UNITS SUBQ SCH ×2 (09:38→20:32)
[2022-04-09] MEDS ORDERED: 0.9 % Sodium Chloride 250 ML ONE (18:09)
[2022-04-09] MEDS: Melatonin 3 MG TABLET PO PRN (20:31)
[2022-04-10] MEDS: *HR* Heparin 5,000 UNIT/ML VIAL SQ SCH ×3 (05:46→19:17)
[2022-04-10] MEDS: Cefepime HCl 2,000 MG in 0.9 % Sodium Chloride 10 ML IVP SCH ×2 (05:46→19:17)
[2022-04-10] MEDS: Aspirin 81 MG TAB.CHEW PO SCH (07:31)
[2022-04-10] MEDS: *HR* Buprenorphine HCl 8 MG TAB.SUBL SL SCH ×3 (07:31→19:19)
[2022-04-10] MEDS: lisinopriL 20 MG TABLET PO SCH (07:31)
[2022-04-10] MEDS: Nicotine 21 MG PATCH.TD24 TD SCH (07:32)
[2022-04-10] MEDS: Insulin LISPRO 300 UNITS/3 ML VIAL SUBQ SCH ×4 (07:33→19:19)
[2022-04-10] MEDS: Insulin DETEMIR 100 UNIT/ML X5UNITS SUBQ SCH ×2 (09:08→19:17)
[2022-04-10] MEDS: Melatonin 3 MG TABLET PO PRN (19:18)
[2022-04-11 04:37] LABS: Basophils % 0.3 %; Eosinophils # 0.3 K/mcL (0.0-0.6); Eosinophils % 3.3 %; Hematocrit 39.6 % (37.5-50.1); Hemoglobin 11.9 g/dL (12.9-16.9); Immature Granulocytes % 0.4 % (0-4); Lymphocytes # 2.3 K/mcL (0.6-4.6); Lymphocytes % 24.1 %; Mean Corpuscular HGB Conc 30.1 g/dL (31.6-35.5); Mean Corpuscular Hemoglobin 26.4 pg (28.0-33.3); Mean Platelet Volume 11.6 fL (9.4-12.4); Monocytes % 10.1 %; Neutrophils # 5.9 K/mcL (1.6-8.9); Platelet Count 192 K/mcL (140-400); Red Cell Distribution Width 17.8 % (11.5-14.5); Segmented Neutrophils % 61.8 %; White Blood Count 9.6 K/mcL (4.3-11.1)
[2022-04-11 05:06] LABS: Calcium 8.6 mg/dL (8.6-10.3); Potassium 5.3 mEq/L (3.5-5.1)
[2022-04-11] MEDS: *HR* Heparin 5,000 UNIT/ML VIAL SQ SCH ×3 (06:28→20:55)
[2022-04-11] MEDS: Cefepime HCl 2,000 MG in 0.9 % Sodium Chloride 10 ML IVP SCH ×2 (06:28→17:49)
[2022-04-11] MEDS: Insulin LISPRO 300 UNITS/3 ML VIAL SUBQ SCH ×4 (08:32→21:00)
[2022-04-11] MEDS: lisinopriL 20 MG TABLET PO SCH (10:23)
[2022-04-11] MEDS: Nicotine 21 MG PATCH.TD24 TD SCH (10:24)
[2022-04-11] MEDS: Aspirin 81 MG TAB.CHEW PO SCH (10:24)
[2022-04-11] MEDS: *HR* Buprenorphine HCl 8 MG TAB.SUBL SL SCH ×3 (10:24→20:54)
[2022-04-11] MEDS: Insulin DETEMIR 100 UNIT/ML X5UNITS SUBQ SCH ×2 (10:25→20:56)
[2022-04-11] MEDS: Melatonin 3 MG TABLET PO PRN (20:54)
[2022-04-12] MEDS: *HR* Heparin 5,000 UNIT/ML VIAL SQ SCH ×3 (05:58→21:27)
[2022-04-12] MEDS: Cefepime HCl 2,000 MG in 0.9 % Sodium Chloride 10 ML IVP SCH ×2 (06:21→18:10)
[2022-04-12] MEDS: Insulin LISPRO 300 UNITS/3 ML VIAL SUBQ SCH ×4 (07:57→21:28)
[2022-04-12] MEDS: lisinopriL 20 MG TABLET PO SCH (09:15)
[2022-04-12] MEDS: *HR* Buprenorphine HCl 8 MG TAB.SUBL SL SCH ×4 (09:15→21:26)
[2022-04-12] MEDS: Aspirin 81 MG TAB.CHEW PO SCH (09:15)
[2022-04-12] MEDS: Nicotine 21 MG PATCH.TD24 TD SCH (09:18)
[2022-04-12] MEDS: Insulin DETEMIR 100 UNIT/ML X5UNITS SUBQ SCH ×2 (09:18→21:28)
[2022-04-12] MEDS: Benzonatate 100 MG CAPSULE PO PRN (21:25)
[2022-04-12] MEDS: Melatonin 3 MG TABLET PO PRN (21:25)
[2022-04-13 06:00] LABS: Hematocrit 35.7 % (37.5-50.1); Hemoglobin 11.1 g/dL (12.9-16.9); Mean Corpuscular HGB Conc 31.1 g/dL (31.6-35.5); Mean Corpuscular Volume 86.9 fL (83.0-100.0); Mean Platelet Volume 12.2 fL (9.4-12.4); Platelet Count 172 K/mcL (140-400); Red Blood Count 4.11 M/mcL (4.19-5.50); Red Cell Distribution Width 17.6 % (11.5-14.5); White Blood Count 9.7 K/mcL (4.3-11.1)
[2022-04-13 06:25] LABS: Calcium 8.1 mg/dL (8.6-10.3); Potassium 4.6 mEq/L (3.5-5.1)
[2022-04-13] MEDS: Cefepime HCl 2,000 MG in 0.9 % Sodium Chloride 10 ML IVP SCH ×2 (06:48→20:24)
[2022-04-13] MEDS: *HR* Heparin 5,000 UNIT/ML VIAL SQ SCH ×3 (06:50→20:21)
[2022-04-13] MEDS: lisinopriL 20 MG TABLET PO SCH (10:02)
[2022-04-13] MEDS: Insulin DETEMIR 100 UNIT/ML X5UNITS SUBQ SCH ×2 (10:02→20:40)
[2022-04-13] MEDS: *HR* Buprenorphine HCl 8 MG TAB.SUBL SL SCH ×3 (10:02→20:20)
[2022-04-13] MEDS: Aspirin 81 MG TAB.CHEW PO SCH (10:02)
[2022-04-13] MEDS: Insulin LISPRO 300 UNITS/3 ML VIAL SUBQ SCH ×4 (10:03→20:40)
[2022-04-13] MEDS: Nicotine 21 MG PATCH.TD24 TD SCH (10:03)
[2022-04-13 20:17] VITALS: BP 168/94; PULSE 84; RESP 18; TEMP 98.8; O2SAT 98
[2022-04-13] MEDS: Melatonin 3 MG TABLET PO PRN (20:21)
== END 2022-04-14 01:50 | disposition left against medical advice (07) | DRG 637 ==
LOC: SUATTDRO 15:00 → INPPIK 15:00
PROVIDERS: ADMIT Family Medicine; ATTEND Nurse Practitioner